=== PATIENT | male | born 1995 | race Caucasian/White ===

== ENCOUNTER 2017-06-10 04:30 | Emergency (ER) | payer SELFPAY ==
[~2017-06-10] VITALS: Ht 172.7 cm; Wt 108.9 kg
[~2017-06-10 04:30] MED LIST: FAMO40TA4 PO
--- NOTE | 2017-06-10 04:57 | PHYS DOC ---
Past Medical History Past Medical History: Asthma Additional Past Medical Histor: ulcers Past Surgical History: Other Additional Past Surgical Histo: ear tubes Alcohol Use: None Drug Use: None Adult General Chief Complaint Chief Complaint: ITCHING HPI HPI Patient is a 21 year old male that just got out of prison tonight. He states about 11pm he noticed a small itchy spot on right arm and left flank. it then quickly "exploded" to everywhere. he took 2 benadryl approx 45 min ago with no relief. no soa, no trouble swallowing or breathing. states his throat feels scratchy He has no hx of other allergies. he thinks it's new soap from [employer] that he used about 9pm. he also ate taco raya around this time as well Review of Systems Review of Systems Constitutional: Denies fever or chills [] Eyes: Denies change in visual acuity, redness, or eye pain [] HENT: Denies nasal congestion or sore throat [] Respiratory: Denies cough or shortness of breath [] Cardiovascular: No additional information not addressed in HPI [] GI: Denies abdominal pain, nausea, vomiting, bloody stools or diarrhea [] : Denies dysuria or hematuria [] Musculoskeletal: Denies back pain or joint pain [] Integument: Denies rash or skin lesions [] Neurologic: Denies headache, focal weakness or sensory changes [] Endocrine: Denies polyuria or polydipsia [] Current Medications Current Medications Current Medications Medications (Trade) Dose Ordered Sig/Ritesh Start Time Stop Time Status Last Admin Dose Admin Diphenhydramine HCl (Benadryl) 50 mg 1X ONCE 06/10/17 05:00 06/10/17 05:01 DC 06/10/17 04:53 50 MG Epinephrine HCl (Adrenalin) 0.2 mg 1X ONCE 06/10/17 05:00 06/10/17 05:01 DC 06/10/17 05:08 0.2 MG Famotidine (Pepcid) 20 mg 1X ONCE 06/10/17 05:00 06/10/17 05:01 DC 06/10/17 04:53 20 MG Methylprednisolone Sodium Succinate (SOLU-Medrol 125MG VIAL) 125 mg 1X ONCE 06/10/17 05:00 06/10/17 05:01 DC 06/10/17 04:53 125 MG Allergies Allergies Allergies Coded Allergies Type Severity Reaction Last Updated Verified No Known Drug Allergies 09/02/14 No Physical Exam Physical Exam Constitutional: Well developed, well nourished, no acute distress, non-toxic appearance. [] HENT: Normocephalic, atraumatic, bilateral external ears normal, oropharynx moist, no oral exudates, no swelling, no tongue swelling, nose normal. [] Eyes: PERRLA, EOMI, conjunctiva normal, no discharge. [] Neck: Normal range of motion, no tenderness, supple, no stridor. [] Cardiovascular:Heart rate regular rhythm, no murmur [] Lungs & Thorax: Bilateral breath sounds clear to auscultation [] Abdomen: Bowel sounds normal, soft, no tenderness, no masses, no pulsatile masses. [] Skin: diffuse raised hives. lips, tongue, throat all normal, no swelling Back: No tenderness, no CVA tenderness. [] Extremities: No tenderness, no cyanosis, no clubbing, ROM intact, no edema. [] Neurologic: Alert and oriented X 3, normal motor function, normal sensory function, no focal deficits noted. [] Psychologic: Affect normal, judgement normal, mood normal. [] Current Patient Data Vital Signs Vital Signs Date Time Temp Pulse Resp B/P (MAP) Pulse Ox O2 Delivery O2 Flow Rate FiO2 06/10/17 04:35 97.3 81 18 145/90 (108) 98 Room Air 97.3 EKG EKG [] Radiology/Procedures Radiology/Procedures [] Course & Med Decision Making Course & Med Decision Making Pertinent Labs and Imaging studies reviewed. (See chart for details) 0534: pt's hives are improving. post pharynx is still normal, nml lips and tongue. 0550: sx not worsening, still showing more improvement. still no airway sx will place on 5 days prednisone. he will return if airway swelling, benadryl every 6 hours, pepcid daily Dragon Disclaimer Dragon Disclaimer This electronic medical record was generated, in whole or in part, using a voice recognition dictation system. Departure Departure Impression: Primary Impression: Allergic reaction Disposition: HOME, SELF-CARE Condition: IMPROVED Referrals: NO PCP (PCP) Patient Instructions: Hives, [id number] Additional Instructions: Take benadryl 25 mg every 6 hours until hives resolve. start prednisone tomorrow morning. take pepcid 20mg daily and claritin 10mg daily. Return if lip swelling, tongue swelling, trouble swallowing or breathing. Take shower with other soap when you get home Scripts Prednisone (PREDNISONE) 20 Mg Tablet 3 TAB PO DAILY for 5 Days, #15 TAB Prov: NATHANAEL FRANCO MD 06/10/17 Critical Care Note Total Time (mins): 31-74 Comments pt had new onset allergic reaction. he states his throat is scratchy and feels swollen. epi given, benadryl, solumedrol, pepcid. post pharynx appeared normal on arrival and on subsequent rechecks. Problems: NATHANAEL FRANCO MD Jun 10, 2017 04:57
[2017-06-10] MEDS ORDERED: EPINEPHrine 1 MG/ML VIAL IM ONE (05:00)
[2017-06-10] MEDS ORDERED: diphenhydrAMINE 50 MG/ML VIAL IVP ONE (05:00)
[2017-06-10] MEDS ORDERED: FAMOTIDINE 20 MG TABLET. PO ONE (05:00)
[2017-06-10] MEDS ORDERED: methylPREDNISolone SOD SUCC PF 125 MG/2 ML VIAL. IV ONE (05:00)
[2017-06-10] MEDS ORDERED: PRED20TA PO (05:40)
[2017-06-10 06:14] VITALS: BP 147/73
== END 2017-06-10 06:15 | disposition home or self-care (01) ==
LOC: ER 04:30
DX: T78.40XA Allergy, unspecified, initial encounter (principal); J45.909 Unspecified asthma, uncomplicated
CPT/HCPCS: 96372; 96374; 96375; 99284; J0171; J1200; J2930

== ENCOUNTER 2018-04-28 15:52 | Emergency (ER) | payer SELFPAY ==
[2018-04-28] MEDS: DIPHTH,PERTUSS(ACELL),TET TOX 0.5 ML DISP.SYRIN. VAX IM (16:11)
== END 2018-04-28 16:50 | disposition home or self-care (01) ==
LOC: ER 15:52
DX: L03.115 Cellulitis of right lower limb (principal); J45.909 Unspecified asthma, uncomplicated
CPT/HCPCS: 73564; 90471; 90715; 99284-25

== ENCOUNTER 2018-12-27 21:50 | Emergency (ER) | payer SELFPAY ==
[~2018-12-27] VITALS: Ht 172.7 cm; Wt 101.6 kg
[~2018-12-27 21:50] MED LIST changes: +PRED20TA PO; +SULF1TAB24 PO
[2018-12-27 22:35] VITALS: BP 138/84
[2018-12-28] MEDS ORDERED: CEPH-264 PO (00:05)
[2018-12-28] MEDS ORDERED: BACI28.34 TP (00:05)
--- NOTE | 2018-12-28 00:05 | PHYS DOC ---
Past Medical History Past Medical History: Asthma, Other Additional Past Medical Histor: ulcers (AMBAR,PRABHA Yip [employer]) Past Surgical History: Other Additional Past Surgical Histo: [facility] tubes [facility] [employer]) Alcohol Use: None Drug Use: None ([facility],PRABHA Yip [employer]) Adult General Chief Complaint Chief Complaint: ABSCESS HPI HPI Patient is a 23 year old male who presents with with a left taking ingrown hair to his left base of buttock 4 days. ([facility],PRABHA Yip [employer]) Review of Systems Review of Systems Constitutional: Denies fever or chills [] Eyes: Denies change in visual acuity, redness, or eye pain [] HENT: Denies nasal congestion or sore throat [] Respiratory: Denies cough or shortness of breath [] Cardiovascular: No additional information not addressed in HPI [] GI: Denies abdominal pain, nausea, vomiting, bloody stools or diarrhea [] : Denies dysuria or hematuria [] Musculoskeletal: Denies back pain or joint pain [] Integument: Abscess to inner base of left buttock. Denies rash or skin lesions [ ] Neurologic: Denies headache, focal weakness or sensory changes [] All other systems were reviewed and found to be within normal limits, except as documented in this note. ([facility],PRABHA Yip [employer]) Allergies Allergies Allergies Coded Allergies Type Severity Reaction Last Updated Verified No Known Drug Allergies 09/02/14 No (ANOOP CLARK MD) Physical Exam Physical Exam Constitutional: Well developed, well nourished, no acute distress, non-toxic appearance. [] HENT: Normocephalic, atraumatic, bilateral external ears normal, oropharynx moist, no oral exudates, nose normal. [] Eyes: PERRLA, EOMI, conjunctiva normal, no discharge. [] Neck: Normal range of motion, no tenderness, supple, no stridor. [] Cardiovascular:Heart rate regular rhythm, no murmur [] Lungs & Thorax: Bilateral breath sounds clear to auscultation [] Abdomen: Bowel sounds normal, soft, no tenderness, no masses, no pulsatile masses. [] Skin: Warm, dry, no erythema, no rash. dime-sized round, draining, open abscess. [] Back: No tenderness, no CVA tenderness. [] Extremities: No tenderness, no cyanosis, no clubbing, ROM intact, no edema. [] Neurologic: Alert and oriented X 3, normal motor function, normal sensory function, no focal deficits noted. [] Psychologic: Affect normal, judgement normal, mood normal. [] (PRABHA VILLALTA APRN) Current Patient Data Vital Signs Vital Signs Date Time Temp Pulse Resp B/P (MAP) Pulse Ox O2 Delivery O2 Flow Rate FiO2 12/27/18 22:35 98.3 95 18 138/84 (102) 97 Room Air 98.3 (ANOOP CLARK MD) EKG EKG [] (PRABHA VILLALTA APRN) Radiology/Procedures Radiology/Procedures [] (PRABHA VILLALTA APRN) Course & Med Decision Making Course & Med Decision Making Patient is a 23 year old male who presents with with a left taking ingrown hair to his left base of buttock 4 days. Afebrile. Alert and oriented. Vital signs within normal limits. Area is the size of a dime and is round and open and draining purulent fluid. Patient is given a prescription for bacitracin and Keflex. Patient keep the area clean and covered. Patient follow-up in 48 hours for a wound check. (PRABHA VILLALTA APRN) Course & Med Decision Making Staff Physician Addendum: I was working in the ER during the course of this patient's visit. I was available for consultation as needed, but I was not directly involved in the care of this patient. (ANOOP CLARK MD) Dragon Disclaimer Dragon Disclaimer This electronic medical record was generated, in whole or in part, using a voice recognition dictation system. (PRABHA VILLALTA APRN) Departure Departure Impression: Primary Impression: Abscess Disposition: 01 HOME, SELF-CARE Condition: STABLE Referrals: NO PCP (PCP) Patient Instructions: Abscess Additional Instructions: Follow up in 48 hours here in the ED for a wound check. Take medications as prescribed. Keep area clean and dry. Scripts Bacitracin/Polymyxin B Sulfate (POLYSPORIN TOPICAL OINT) 28.3 Gm Oint...g. 1 ASHLI TP BID for WOUND CARE, #1 TUBE DIRECTED BY PHYSICIAN Prov: PRABHA VILLALTA APRN 12/28/18 Cephalexin (KEFLEX) 500 Mg Capsule 1 CAP PO TID for 7 Days, #21 CAP Prov: PRABHA VILLALTA APRN 12/28/18 PRABHA VILLALTA APRN Dec 28, 2018 00:05 ANOOP CLARK MD Dec 29, 2018 00:49
== END 2018-12-28 00:26 | disposition home or self-care (01) ==
LOC: ER 21:50
DX: L02.31 Cutaneous abscess of buttock (principal); L73.1 Pseudofolliculitis barbae; J45.909 Unspecified asthma, uncomplicated
CPT/HCPCS: 99283

== ENCOUNTER 2019-01-20 14:22 | Inpatient (IN) | payer SELFPAY ==
[2019-01-20] VITALS (8 sets, daily range): BP systolic 109–120; BP diastolic 56–74
[~2019-01-20] VITALS: Ht 175.3 cm; Wt 118.8 kg
[~2019-01-20 14:22] MED LIST changes: +BACI28.34 TP; +CEPH-264 PO
[2019-01-20] MEDS ORDERED: fentaNYL PF VIAL 100 MCG/2 ML VIAL IV ONE (15:00)
[2019-01-20] MEDS ORDERED: IV NORMAL SALINE 1000ML BAG 1,000 ML IV ONE ×2 (15:00→17:00)
[2019-01-20] MEDS ORDERED: ONDANSETRON PF 4 MG/2 ML VIAL. IV ONE (15:00)
[2019-01-20 15:09] LABS: BASO % 0 % (0-3); EOS # 0.1 x10^3/uL (0.0-0.7); EOS % 1 % (0-3); HEMATOCRIT 44.8 % (39.0-53.0); HEMOGLOBIN 15.5 g/dL (13.0-17.5); LYMPH # 1.5 x10^3/uL (1.0-4.8); LYMPH % 12 % (24-48); MEAN CORPUSCULAR HEMOGLOBIN 31 pg (25-35); MEAN CORPUSCULAR HGB CONC 35 g/dL (31-37); MEAN CORPUSCULAR VOLUME 89 fL (79-100); MONO # 0.9 x10^3/uL (0.0-1.1); MONO % 8 % (0-9); NEUT # 9.7 x10^3uL (1.8-7.7); NEUT % 79 % (31-73); PLATELET COUNT 210 x10^3/uL (140-400); RED BLOOD COUNT 5.02 x10^6/uL (4.30-5.70); RED CELL DISTRIBUTION WIDTH 12.7 % (11.5-14.5); WHITE BLOOD COUNT 12.3 x10^3/uL (4.0-11.0)
[2019-01-20 15:16] LABS: CALCIUM 8.9 mg/dL (8.5-10.1); GFR 91.8; POTASSIUM 3.7 mmol/L (3.5-5.1)
--- NOTE | 2019-01-20 15:21 | PHYS DOC ---
Past Medical History Past Medical History: No Pertinent History Additional Past Medical Histor: ulcers Past Surgical History: No Surgical History Additional Past Surgical Histo: ear tubes Additional Information: 1 pack/3 days Alcohol Use: None Drug Use: None Adult General Chief Complaint Chief Complaint: ABDOMINAL PAIN HPI HPI Patient is a 23 year old male with no significant medical history who presents to the ED today complaining of 10 out of 10 right lower quadrant abdominal pain with nausea and vomiting that began last night. Patient denies any fever. Denies any diarrhea. Denies anything specifically relieving the pain or exacerbating it. Review of Systems Review of Systems Constitutional: Denies fever or chills [] Eyes: Denies change in visual acuity, redness, or eye pain [] HENT: Denies nasal congestion or sore throat [] Respiratory: Denies cough or shortness of breath [] Cardiovascular: No additional information not addressed in HPI [] GI: Reports right lower quadrant abdominal pain, nausea and vomiting, denies, bloody stools or diarrhea [] : Denies dysuria or hematuria [] Musculoskeletal: Denies back pain or joint pain [] Integument: Denies rash or skin lesions [] Neurologic: Denies headache, focal weakness or sensory changes [] All other systems were reviewed and found to be within normal limits, except as documented in this note. Current Medications Current Medications Current Medications Medications (Trade) Dose Ordered Sig/Ritesh Start Time Stop Time Status Last Admin Dose Admin Fentanyl Citrate (Fentanyl 2ml Vial) 50 mcg 1X ONCE 01/20/19 15:00 01/20/19 15:10 DC 01/20/19 15:21 50 MCG Info (CONTRAST GIVEN -- Rx MONITORING) 1 each PRN DAILY PRN 01/20/19 15:30 01/22/19 15:29 Iohexol (Omnipaque 300 Mg/ml) 75 ml 1X ONCE 01/20/19 15:30 01/20/19 15:31 DC 01/20/19 15:43 75 ML Ondansetron HCl (Zofran) 4 mg 1X ONCE 01/20/19 15:00 01/20/19 15:10 DC 01/20/19 15:28 4 MG Sodium Chloride 1,000 ml @ 1,000 mls/hr 1X ONCE 01/20/19 15:00 01/20/19 15:59 DC 01/20/19 15:16 1,000 MLS/HR Allergies Allergies Allergies Coded Allergies Type Severity Reaction Last Updated Verified No Known Drug Allergies 09/02/14 No Physical Exam Physical Exam Constitutional: Well developed, well nourished, no acute distress, non-toxic appearance. [] HENT: Normocephalic, atraumatic, bilateral external ears normal, oropharynx moist, no oral exudates, nose normal. [] Eyes: PERRLA, EOMI, conjunctiva normal, no discharge. [] Neck: Normal range of motion, no tenderness, supple, no stridor. [] Cardiovascular:Heart rate regular rhythm, no murmur [] Lungs & Thorax: Bilateral breath sounds clear to auscultation [] Abdomen: Obese abdomen. Bowel sounds normal, soft, tenderness diffusely on palpation of the right side of the mid and lower abdomen, positive psoas sign, positive obturator sign, rebound tenderness, patient is guarding the right side of the abdomen, no right upper quadrant tenderness, negative Tam sign, no masses, no pulsatile masses. [] Skin: Warm, dry, no erythema, no rash. [] Back: No tenderness, no CVA tenderness. [] Extremities: No tenderness, no cyanosis, no clubbing, ROM intact, no edema. [] Neurologic: Alert and oriented X 3, normal motor function, normal sensory function, no focal deficits noted. [] Psychologic: Affect normal, judgement normal, mood normal. [] Current Patient Data Vital Signs Vital Signs Date Time Temp Pulse Resp B/P (MAP) Pulse Ox O2 Delivery O2 Flow Rate FiO2 01/20/19 15:21 22 99 01/20/19 14:49 98.5 97 122/68 (86) Room Air 98.5 Lab Values Laboratory Tests Test 01/20/19 14:55 White Blood Count 12.3 x10^3/uL (4.0-11.0) H Red Blood Count 5.02 x10^6/uL (4.30-5.70) Hemoglobin 15.5 g/dL (13.0-17.5) Hematocrit 44.8 % (39.0-53.0) Mean Corpuscular Volume 89 fL (79-100) Mean Corpuscular Hemoglobin 31 pg (25-35) Mean Corpuscular Hemoglobin Concent 35 g/dL (31-37) Red Cell Distribution Width 12.7 % (11.5-14.5) Platelet Count 210 x10^3/uL (140-400) Neutrophils (%) (Auto) 79 % (31-73) H Lymphocytes (%) (Auto) 12 % (24-48) L Monocytes (%) (Auto) 8 % (0-9) Eosinophils (%) (Auto) 1 % (0-3) Basophils (%) (Auto) 0 % (0-3) Neutrophils # (Auto) 9.7 x10^3uL (1.8-7.7) H Lymphocytes # (Auto) 1.5 x10^3/uL (1.0-4.8) Monocytes # (Auto) 0.9 x10^3/uL (0.0-1.1) Eosinophils # (Auto) 0.1 x10^3/uL (0.0-0.7) Basophils # (Auto) 0.0 x10^3/uL (0.0-0.2) Sodium Level 140 mmol/L (136-145) Potassium Level 3.7 mmol/L (3.5-5.1) Chloride Level 101 mmol/L (98-107) Carbon Dioxide Level 28 mmol/L (21-32) Anion Gap 11 (6-14) Blood Urea Nitrogen 15 mg/dL (8-26) Creatinine 1.0 mg/dL (0.7-1.3) Estimated GFR (Cockcroft-Gault) 91.8 BUN/Creatinine Ratio 15 (6-20) Glucose Level 100 mg/dL (70-99) H Calcium Level 8.9 mg/dL (8.5-10.1) Total Bilirubin 0.8 mg/dL (0.2-1.0) Aspartate Amino Transferase (AST) 15 U/L (15-37) Alanine Aminotransferase (ALT) 24 U/L (16-63) Alkaline Phosphatase 99 U/L (46-116) Total Protein 8.0 g/dL (6.4-8.2) Albumin 4.3 g/dL (3.4-5.0) Albumin/Globulin Ratio 1.2 (1.0-1.7) Lipase 121 U/L (73-393) Ethyl Alcohol Level < 10 mg/dL (0-10) Laboratory Tests 01/20/19 14:55 Laboratory Tests 01/20/19 14:55 EKG EKG [] Radiology/Procedures Radiology/Procedures [] Course & Med Decision Making Course & Med Decision Making Pertinent Labs and Imaging studies reviewed. (See chart for details) This is a 23-year-old male patient presenting to the ED today with complaints of right lower quadrant abdominal pain with nausea and vomiting that began yesterday. CBC with a WBC of 12.3, CMP with no acute findings. CT of the abdomen and pelvic was noted for acute appendicitis. Patient is afebrile Spoke with Dr. Oscar who accepted patient for admission. 16:54 Dr. Oscar in the ED, taking patient to surgery now Dragon Disclaimer Dragon Disclaimer This electronic medical record was generated, in whole or in part, using a voice recognition dictation system. Departure Departure Impression: Primary Impression: Acute appendicitis Disposition: ADMITTED INPATIENT Condition: STABLE Referrals: NO PCP (PCP) Problem Qualifiers Primary Impression: Acute appendicitis Acute appendicitis type: unspecified acute appendicitis type Qualified Codes : K35.80 - Unspecified acute appendicitis MELITON ROTHMAN APRN Jan 20, 2019 15:20
[2019-01-20 15:22] LABS: ALBUMIN 4.3 g/dL (3.4-5.0); ALBUMIN/GLOBULIN RATIO 1.2 (1.0-1.7); TOTAL BILIRUBIN 0.8 mg/dL (0.2-1.0)
[2019-01-20] MEDS ORDERED: IOHEXOL 300 MG/ML 100ML VIAL. IV ONE (15:30)
[2019-01-20] MEDS ORDERED: CONTRAST GIVEN. MC PRN (15:30)
--- NOTE | 2019-01-20 16:19 | RAD ---
EXAM: CT ABDOMEN/PELVIS WITH CONTRAST. HISTORY: Right lower quadrant pain. TECHNIQUE: Computed tomography of the abdomen and pelvis was performed after the intravenous administration of 75 mL Omnipaque 300. COMPARISON: None. FINDINGS: Lung windows through the visualized portions of the bases reveal mild atelectasis. Bone windows reveal no suspicious lesions. The spleen is mildly to moderately enlarged at 16 cm. The liver, gallbladder, pancreas, adrenal glands and kidneys are unremarkable. There are no pathologically enlarged lymph nodes. The appendix is thickened to 1.3 cm with surrounding inflammatory change, consistent with acute appendicitis. There is no drainable collection. A small umbilical hernia contains only fat. There is no small bowel obstruction. IMPRESSION: 1. Acute appendicitis. 2. Small umbilical hernia containing only fat. 3. Mild to moderate splenomegaly. *One or more of the following individualized dose reduction techniques were utilized for this examination: 1. Automated exposure control. 2. Adjustment of the mA and/or kV according to patient size. 3. Use of iterative reconstruction technique. Electronically signed by: Carlin Freeman MD (01/20/2019 4:16 PM) [id number]
[2019-01-20] MEDS ORDERED: BUPIVAC MPF-EPI 0.5%-1:200000 30 ML VIAL. ONE (16:38)
[2019-01-20] MEDS ORDERED: BACITRACIN 50,000 UNIT VIAL. IRR ONE (16:38)
[2019-01-20 16:50] LABS: BILIRUBIN,URINE NEGATIVE (NEG); CLARITY,URINE CLEAR; COLOR,URINE YELLOW; NITRITE,URINE NEGATIVE (NEG); PH,URINE 6.5; PROTEIN,URINE NEGATIVE (NEG-TRACE)
[2019-01-20 17:00] LABS: BACTERIA,URINE FEW /HPF (0-FEW); SQUAMOUS EPITHELIAL CELL,UR OCC /LPF
[2019-01-20] MEDS ORDERED: PIPERACILLIN/TAZOBACTAM 3.375 GM in IV NORMAL SALINE 50ML 50 ML IV ONE (17:00)
[2019-01-20] MEDS ORDERED: ONDANSETRON PF 4 MG/2 ML VIAL. IV PRN ×3 (17:00→19:00)
[2019-01-20] MEDS ORDERED: MORPHINE SULFATE 4 MG/ML VIAL. IV PRN (17:00)
[2019-01-20 17:02] LABS: BARBITURATES NEG (NEG); BENZODIAZEPINES NEG (NEG); CANNABINOIDS NEG (NEG); COCAINE NEG (NEG); METHADONE NEG (NEG); OPIATES NEG (NEG); PHENCYCLIDINE NEG (NEG)
[2019-01-20 17:03] LABS: AMPHETAMINE/METHAMPHETAMINE NEG (NEG)
--- NOTE | 2019-01-20 17:11 | PDOC1 ---
History and Physical Date of Admission Date of Admission DATE: 01/20/19 TIME: 17:07 Identification/Chief Complaint Chief Complaint RLQ pain Source Source: Chart review, Patient History of Present Illness History of Present Illness Vishnu is a 23 yo male with a two day hx of worsening RLQ pain. He came to the ED and CT is consistent with acute appendicitis Past Medical History Cardiovascular: No pertinent hx Pulmonary: No pertinent hx Renal/: No pertinent hx Past Surgical History Past Surgical History: Other (tympanoplasty) Family History Family History: No Significant Social History Smoke: <1 pack per day Current Problem List Problem List Problems Medical Problems: (1) Acute appendicitis Status: Acute Current Medications Current Medications Current Medications Ondansetron HCl (Zofran) 4 mg 1X ONCE IV Last administered on 01/20/19at 15:28 ; Start 01/20/19 at 15:00; Stop 01/20/19 at 15:10; Status DC Fentanyl Citrate (Fentanyl 2ml Vial) 50 mcg 1X ONCE IV Last administered on at 15:21; Start 01/20/19 at 15:00; Stop 01/20/19 at 15:10; Status DC Sodium Chloride 1,000 ml @ 1,000 mls/hr 1X ONCE IV Last administered on at 15:16; Start 01/20/19 at 15:00; Stop 01/20/19 at 15:59; Status DC Iohexol (Omnipaque 300 Mg/ml) 75 ml 1X ONCE IV Last administered on 01/20/19at 15:43; Start 01/20/19 at 15:30; Stop 01/20/19 at 15:31; Status DC Info (CONTRAST GIVEN -- Rx MONITORING) 1 each PRN DAILY PRN MC SEE COMMENTS; Start 01/20/19 at 15:30; Stop 01/22/19 at 15:29 Ondansetron HCl (Zofran) 4 mg PRN Q8HRS PRN IV NAUSEA/VOMITING; Start 01/20/19 at 17:00; Stop 01/21/19 at 16:59 Morphine Sulfate (Morphine Sulfate) 4 mg PRN Q2HR PRN IV PAIN; Start 01/20/19 at 17:00; Stop 01/21/19 at 16:59 Piperacillin Sod/ Tazobactam Sod 3.375 gm/Sodium Chloride 50 ml @ 100 mls/hr 1X ONCE IV ; Start 01/20/19 at 17:00; Stop 01/20/19 at 17:29 Sodium Chloride 1,000 ml @ 125 mls/hr 1X ONCE IV ; Start 01/20/19 at 17:00; Stop 01/21/19 at 00:59 Active Scripts Active Polysporin Topical Oint (Bacitracin/Polymyxin B Sulfate) 28.3 Gm Oint...g. 1 Isabel TP BID DIRECTED BY PHYSICIAN Keflex (Cephalexin) 500 Mg Capsule 1 Cap PO TID 7 Days Bactrim Ds Tablet (Sulfamethoxazole/Trimethoprim) 1 Each Tablet 1 Tab PO BID Prednisone 20 Mg Tablet 3 Tab PO DAILY 5 Days Famotidine 40 Mg Tablet 40 Mg PO HS Allergies Allergies: Coded Allergies: No Known Drug Allergies (Unverified , 09/02/14) ROS Gastrointestinal: Yes Abdominal Pain, Yes Other (anorexia) Physical Exam General: Alert, Oriented X3, No acute distress HEENT: Atraumatic Lungs: Normal air movement Heart: RRR Abdomen: Soft, Other (TTP in the RLQ) Skin: Other (warm, dry) Neuro: Normal speech Vitals Vitals Vital Signs Date Time Temp Pulse Resp B/P (MAP) Pulse Ox O2 Delivery O2 Flow Rate FiO2 01/20/19 15:21 22 99 01/20/19 14:49 98.5 97 122/68 (86) Room Air 98.5 Labs Labs Laboratory Tests Test 01/20/19 14:55 01/20/19 16:38 White Blood Count 12.3 x10^3/uL (4.0-11.0) Red Blood Count 5.02 x10^6/uL (4.30-5.70) Hemoglobin 15.5 g/dL (13.0-17.5) Hematocrit 44.8 % (39.0-53.0) Mean Corpuscular Volume 89 fL (79-100) Mean Corpuscular Hemoglobin 31 pg (25-35) Mean Corpuscular Hemoglobin Concent 35 g/dL (31-37) Red Cell Distribution Width 12.7 % (11.5-14.5) Platelet Count 210 x10^3/uL (140-400) Neutrophils (%) (Auto) 79 % (31-73) Lymphocytes (%) (Auto) 12 % (24-48) Monocytes (%) (Auto) 8 % (0-9) Eosinophils (%) (Auto) 1 % (0-3) Basophils (%) (Auto) 0 % (0-3) Neutrophils # (Auto) 9.7 x10^3uL (1.8-7.7) Lymphocytes # (Auto) 1.5 x10^3/uL (1.0-4.8) Monocytes # (Auto) 0.9 x10^3/uL (0.0-1.1) Eosinophils # (Auto) 0.1 x10^3/uL (0.0-0.7) Basophils # (Auto) 0.0 x10^3/uL (0.0-0.2) Sodium Level 140 mmol/L (136-145) Potassium Level 3.7 mmol/L (3.5-5.1) Chloride Level 101 mmol/L (98-107) Carbon Dioxide Level 28 mmol/L (21-32) Anion Gap 11 (6-14) Blood Urea Nitrogen 15 mg/dL (8-26) Creatinine 1.0 mg/dL (0.7-1.3) Estimated GFR (Cockcroft-Gault) 91.8 BUN/Creatinine Ratio 15 (6-20) Glucose Level 100 mg/dL (70-99) Calcium Level 8.9 mg/dL (8.5-10.1) Total Bilirubin 0.8 mg/dL (0.2-1.0) Aspartate Amino Transf (AST/SGOT) 15 U/L (15-37) Alanine Aminotransferase (ALT/SGPT) 24 U/L (16-63) Alkaline Phosphatase 99 U/L (46-116) Total Protein 8.0 g/dL (6.4-8.2) Albumin 4.3 g/dL (3.4-5.0) Albumin/Globulin Ratio 1.2 (1.0-1.7) Lipase 121 U/L (73-393) Ethyl Alcohol Level < 10 mg/dL (0-10) Urine Collection Type Unknown Urine Color Yellow Urine Clarity Clear Urine pH 6.5 Urine Specific [place] >=1.030 Urine Protein Negative mg/dL (NEG-TRACE) Urine Glucose (UA) Negative mg/dL (NEG) Urine Ketones (Stick) Trace mg/dL (NEG) Urine Blood Negative (NEG) Urine Nitrite Negative (NEG) Urine Bilirubin Negative (NEG) Urine Urobilinogen Dipstick 1.0 mg/dL (0.2 mg/dL) Urine Leukocyte Esterase Negative (NEG) Urine RBC 1-2 /HPF (0-2) Urine WBC 1-4 /HPF (0-4) Urine Squamous Epithelial Cells Occ /LPF Urine Bacteria Few /HPF (0-FEW) Urine Opiates Screen Neg (NEG) Urine Methadone Screen Neg (NEG) Urine Barbiturates Neg (NEG) Urine Phencyclidine Screen Neg (NEG) Urine Amphetamine/Methamphetamine Neg (NEG) Urine Benzodiazepines Screen Neg (NEG) Urine Cocaine Screen Neg (NEG) Urine Cannabinoids Screen Neg (NEG) Urine Ethyl Alcohol Neg (NEG) Laboratory Tests Test 01/20/19 14:55 01/20/19 16:38 White Blood Count 12.3 x10^3/uL (4.0-11.0) Red Blood Count 5.02 x10^6/uL (4.30-5.70) Hemoglobin 15.5 g/dL (13.0-17.5) Hematocrit 44.8 % (39.0-53.0) Mean Corpuscular Volume 89 fL (79-100) Mean Corpuscular Hemoglobin 31 pg (25-35) Mean Corpuscular Hemoglobin Concent 35 g/dL (31-37) Red Cell Distribution Width 12.7 % (11.5-14.5) Platelet Count 210 x10^3/uL (140-400) Neutrophils (%) (Auto) 79 % (31-73) Lymphocytes (%) (Auto) 12 % (24-48) Monocytes (%) (Auto) 8 % (0-9) Eosinophils (%) (Auto) 1 % (0-3) Basophils (%) (Auto) 0 % (0-3) Neutrophils # (Auto) 9.7 x10^3uL (1.8-7.7) Lymphocytes # (Auto) 1.5 x10^3/uL (1.0-4.8) Monocytes # (Auto) 0.9 x10^3/uL (0.0-1.1) Eosinophils # (Auto) 0.1 x10^3/uL (0.0-0.7) Basophils # (Auto) 0.0 x10^3/uL (0.0-0.2) Sodium Level 140 mmol/L (136-145) Potassium Level 3.7 mmol/L (3.5-5.1) Chloride Level 101 mmol/L (98-107) Carbon Dioxide Level 28 mmol/L (21-32) Anion Gap 11 (6-14) Blood Urea Nitrogen 15 mg/dL (8-26) Creatinine 1.0 mg/dL (0.7-1.3) Estimated GFR (Cockcroft-Gault) 91.8 BUN/Creatinine Ratio 15 (6-20) Glucose Level 100 mg/dL (70-99) Calcium Level 8.9 mg/dL (8.5-10.1) Total Bilirubin 0.8 mg/dL (0.2-1.0) Aspartate Amino Transf (AST/SGOT) 15 U/L (15-37) Alanine Aminotransferase (ALT/SGPT) 24 U/L (16-63) Alkaline Phosphatase 99 U/L (46-116) Total Protein 8.0 g/dL (6.4-8.2) Albumin 4.3 g/dL (3.4-5.0) Albumin/Globulin Ratio 1.2 (1.0-1.7) Lipase 121 U/L (73-393) Ethyl Alcohol Level < 10 mg/dL (0-10) Urine Collection Type Unknown Urine Color Yellow Urine Clarity Clear Urine pH 6.5 Urine Specific [place] >=1.030 Urine Protein Negative mg/dL (NEG-TRACE) Urine Glucose (UA) Negative mg/dL (NEG) Urine Ketones (Stick) Trace mg/dL (NEG) Urine Blood Negative (NEG) Urine Nitrite Negative (NEG) Urine Bilirubin Negative (NEG) Urine Urobilinogen Dipstick 1.0 mg/dL (0.2 mg/dL) Urine Leukocyte Esterase Negative (NEG) Urine RBC 1-2 /HPF (0-2) Urine WBC 1-4 /HPF (0-4) Urine Squamous Epithelial Cells Occ /LPF Urine Bacteria Few /HPF (0-FEW) Urine Opiates Screen Neg (NEG) Urine Methadone Screen Neg (NEG) Urine Barbiturates Neg (NEG) Urine Phencyclidine Screen Neg (NEG) Urine Amphetamine/Methamphetamine Neg (NEG) Urine Benzodiazepines Screen Neg (NEG) Urine Cocaine Screen Neg (NEG) Urine Cannabinoids Screen Neg (NEG) Urine Ethyl Alcohol Neg (NEG) Images Images CT done on admission is reviewed VTE Prophylaxis Ordered VTE Prophylaxis Devices: Yes VTE Pharmacological Prophylaxi: No Assessment/Plan Assessment/Plan acute appendicitis explained risks of laparoscopic appendectomy, including but not limited to bleeding, infection, injury to bowel,bladder with need for further surgery, also possible open procedure he will proceed ALMITA PAULINO MD Jan 20, 2019 17:11
[2019-01-20] MEDS ORDERED: IV RINGERS,LACTATED 1000ML 1,000 ML IV SCH (17:46)
[2019-01-20] MEDS ORDERED: SUCCINYLCHOLINE 200 MG/10 ML VIAL. ONE (17:50)
[2019-01-20] MEDS ORDERED: MIDAZOLAM HCL/PF 2 MG/2 ML VIAL. ONE (17:51)
[2019-01-20] MEDS ORDERED: ROCURONIUM 50 MG/5 ML VIAL. ONE (17:51)
[2019-01-20] MEDS ORDERED: fentaNYL PF VIAL 100 MCG/2 ML VIAL ONE ×2 (17:54→18:27)
[2019-01-20] MEDS ORDERED: PROCHLORPERAZINE 10 MG/2 ML VIAL. IV PRN (18:00)
[2019-01-20] MEDS ORDERED: fentaNYL PF VIAL 100 MCG/2 ML VIAL IV PRN ×2 (18:00)
[2019-01-20] MEDS ORDERED: MORPHINE SULFATE 2 MG/ML VIAL. IV PRN (18:00)
[2019-01-20] MEDS ORDERED: LIDOCAINE 1% PF 2 ML VIAL. ID PRN (18:00)
[2019-01-20] MEDS ORDERED: HYDROmorphone 2 MG/ML VIAL IV PRN ×2 (18:00→19:00)
[2019-01-20] MEDS ORDERED: DEXAMETHASONE SOD PHOS 20 MG/5 ML VIAL. ONE (18:39)
[2019-01-20] MEDS ORDERED: LIDOCAINE 2% PF 5 ML VIAL. ONE (18:39)
[2019-01-20] MEDS ORDERED: PROPOFOL 20 ML IV ONE (18:39)
[2019-01-20] MEDS ORDERED: ONDANSETRON PF 4 MG/2 ML VIAL. ONE (18:40)
[2019-01-20] MEDS ORDERED: FAMOTIDINE 20 MG/2 ML VIAL ONE (18:40)
[2019-01-20] MEDS ORDERED: GLYCOPYRROLATE 1 MG/5 ML VIAL. ONE (18:42)
[2019-01-20] MEDS ORDERED: NEOSTIGMINE 10 MG/10 ML VIAL. ONE (18:42)
--- NOTE | 2019-01-20 18:59 | PDOC ---
BRIEF OPERATIVE NOTE Date: Jan 20, 2019 Pre-Op Diagnosis acute appendicitis Post-Op Diagnosis same Procedure Performed l/s appendectomy Surgeon Dayne Anesthesia Type: General Blood Loss 10cc IV Fluid 1000cc Specimens Obtained appendix Findings acute appendicitis without evidence of rupture Complications none Operative Note Wk # ALMITA PAULINO MD Jan 20, 2019 18:59
[2019-01-20] MEDS ORDERED: oxyCODONE/APAP 5/325 1 TAB TABLET PO PRN (19:00)
[2019-01-20] MEDS ORDERED: diphenhydrAMINE HCL 25 MG CAPSULE PO PRN (19:00)
[2019-01-20] MEDS ORDERED: 0.9 % SODIUM CHLORIDE 10 ML DISP.SYRIN. IV PRN (19:00)
[2019-01-20] MEDS ORDERED: DEXTROSE 50% 25 GM / 50ML DISP.SYRIN. IV PRN (19:00)
[2019-01-20] MEDS ORDERED: KETOROLAC 30 MG/ML VIAL. ONE (19:05)
--- NOTE | 2019-01-20 21:00 | NUR ---
pt arrived to floor at 2004 in stable condition from PACU. pt is alert and oriented with mom at bedside. pt has call light within reach. pt is rating his pain 5/10 but states that is a comfortable rating for him. pt dressing is CDI with ice pack and pillow to help with pain. pt is on 2LNC. received report from KJ Schilling in ER and KJ Kim in PACU.
--- NOTE | 2019-01-20 21:10 | OP ---
DATE OF SURGERY: 01/20/2019 PREOPERATIVE DIAGNOSIS: Acute appendicitis. POSTOPERATIVE DIAGNOSIS: Acute appendicitis. PROCEDURE: Laparoscopic appendectomy. SURGEON: Davide Paulino MD. . ANESTHESIA: General endotracheal. ESTIMATED BLOOD LOSS: 10 mL. INTRAVENOUS FLUID: 1 liter. INDICATIONS: The patient is a 23-year-old with right lower quadrant pain for [address] consistent with appendicitis. DESCRIPTION OF PROCEDURE: The patient was brought to the operating suite, given a general endotracheal anesthetic. Delvalle catheter was placed to dependent drainage and the abdomen prepped and draped in usual sterile fashion. A supraumbilical incision was infiltrated with local anesthetic, incised and a 5-mm Visiport used to gain access into the abdominal cavity. Pneumoperitoneum established. Camera inserted and under direct vision, the suprapubic and left lower quadrant ports were placed. Supraumbilical port converted to 12 mm for instrumentation. Table rolled to the left and placed in some Trendelenburg. The appendix was gently freed from surrounding structures to expose its base. A rent was created between the base of the appendix and the mesoappendix and an Endo-TONY stapler was passed with the tissue load to amputate the base of the appendix. Vascular load divided the mesoappendix. Appendix placed in an EndoCatch bag. Intra-abdominal pressure decreased to 6 cm of water. No bleeding from the appendiceal stump or the mesoappendix was seen. Table returned to level. Appendix delivered through the supraumbilical incision. That incision was closed with interrupted 0 Vicryl suture. Again, at 6 cm of water, no bleeding from the wound closure or from the left lower quadrant port site after its removal. Abdomen decompressed, camera removed, no bleeding seen. Skin incisions closed with paul. Sterile dressings applied. Delvalle catheter removed. The patient was awakened from his anesthetic and taken to the recovery room in satisfactory condition. DAVIDE PAULINO MD DR: DASH/sam JOB#: [id number] / [id number]
[2019-01-20] MEDS: POTASSIUM CL 20MEQ-0.45% NACL 1,000 ML IV SCH (22:07)
[2019-01-20] MEDS: oxyCODONE/APAP 5/325 1 TAB TABLET PO PRN (22:13)
[2019-01-21 00:01] VITALS: BP 125/64
[2019-01-21 03:00] VITALS: BP 107/59
[2019-01-21] MEDS: oxyCODONE/APAP 5/325 1 TAB TABLET PO PRN (04:12)
[2019-01-21 05:21] LABS: BASO % 0 % (0-3); EOS % 0 % (0-3); HEMATOCRIT 40.5 % (39.0-53.0); HEMOGLOBIN 14.1 g/dL (13.0-17.5); LYMPH # 0.7 x10^3/uL (1.0-4.8); LYMPH % 9 % (24-48); MEAN CORPUSCULAR HEMOGLOBIN 31 pg (25-35); MEAN CORPUSCULAR HGB CONC 35 g/dL (31-37); MEAN CORPUSCULAR VOLUME 90 fL (79-100); MONO # 0.2 x10^3/uL (0.0-1.1); MONO % 2 % (0-9); NEUT # 6.9 x10^3uL (1.8-7.7); NEUT % 89 % (31-73); PLATELET COUNT 206 x10^3/uL (140-400); RED BLOOD COUNT 4.49 x10^6/uL (4.30-5.70); RED CELL DISTRIBUTION WIDTH 12.8 % (11.5-14.5); WHITE BLOOD COUNT 7.7 x10^3/uL (4.0-11.0)
[2019-01-21 05:46] LABS: CALCIUM 8.4 mg/dL (8.5-10.1); GFR 91.8; POTASSIUM 4.2 mmol/L (3.5-5.1)
[2019-01-21] MEDS: POTASSIUM CL 20MEQ-0.45% NACL 1,000 ML IV SCH ×2 (06:07→08:08)
[2019-01-21 07:00] VITALS: BP 104/59
[2019-01-21] MEDS ORDERED: OXYC1TAB15 PO (08:29)
--- NOTE | 2019-01-21 08:30 | DISCH ---
DISCHARGE INSTRUCTIONS Condition on Discharge Condition on Discharge: Stable Activity After Discharge Activity Instructions for Disc: Activity as tolerated Other activity instructions: ok to shower Lifting Instructions after Dis: No heavy lifting (20 lbs x 2 weeks) Driving Instructions after Dis: Do not drive (while taking pain medications ) Diet after Discharge Diet after Discharge: Regular Wound Incision Care Wound/Incision Care: May get incision wet, No wound care needed Contacting the DRPerla after DC Call your doctor for: Concerns you may have Follow-Up Follow up with: Dr Oscar 1 week, call to schedule [phone] JULISSA MENDIOLA APRN Jan 21, 2019 08:30
--- NOTE | 2019-01-21 08:32 | PDOC ---
JULISSA MENDIOLA LEGAL COORDINATOR 01/21/19 0832: SURGICAL PROGRESS NOTE Subjective tolerating diet ambulating urinating minimal pain Vital Signs Vital Signs Date Time Temp Pulse Resp B/P (MAP) Pulse Ox O2 Delivery O2 Flow Rate FiO2 01/21/19 07:00 97.4 64 18 104/59 (74) 94 Room Air 97.4 01/20/19 22:13 2.0 I&O Intake and Output 01/21/19 06:59 Intake Total 2670 ml Output Total 85 ml Balance 2585 ml Intake Oral 420 ml IV Total 2250 ml Output Urine Total 75 ml Estimated Blood Loss 10 ml # Voids 1 # Bowel Movements 1 General: Alert, Oriented X3, Cooperative, No acute distress Abdomen: Soft, Other (ND, lap dressings dry) Labs Laboratory Tests Test 01/20/19 14:55 01/20/19 16:38 01/21/19 04:20 White Blood Count 12.3 x10^3/uL (4.0-11.0) 7.7 x10^3/uL (4.0-11.0) Red Blood Count 5.02 x10^6/uL (4.30-5.70) 4.49 x10^6/uL (4.30-5.70) Hemoglobin 15.5 g/dL (13.0-17.5) 14.1 g/dL (13.0-17.5) Hematocrit 44.8 % (39.0-53.0) 40.5 % (39.0-53.0) Mean Corpuscular Volume 89 fL (79-100) 90 fL (79-100) Mean Corpuscular Hemoglobin 31 pg (25-35) 31 pg (25-35) Mean Corpuscular Hemoglobin Concent 35 g/dL (31-37) 35 g/dL (31-37) Red Cell Distribution Width 12.7 % (11.5-14.5) 12.8 % (11.5-14.5) Platelet Count 210 x10^3/uL (140-400) 206 x10^3/uL (140-400) Neutrophils (%) (Auto) 79 % (31-73) 89 % (31-73) Lymphocytes (%) (Auto) 12 % (24-48) 9 % (24-48) Monocytes (%) (Auto) 8 % (0-9) 2 % (0-9) Eosinophils (%) (Auto) 1 % (0-3) 0 % (0-3) Basophils (%) (Auto) 0 % (0-3) 0 % (0-3) Neutrophils # (Auto) 9.7 x10^3uL (1.8-7.7) 6.9 x10^3uL (1.8-7.7) Lymphocytes # (Auto) 1.5 x10^3/uL (1.0-4.8) 0.7 x10^3/uL (1.0-4.8) Monocytes # (Auto) 0.9 x10^3/uL (0.0-1.1) 0.2 x10^3/uL (0.0-1.1) Eosinophils # (Auto) 0.1 x10^3/uL (0.0-0.7) 0.0 x10^3/uL (0.0-0.7) Basophils # (Auto) 0.0 x10^3/uL (0.0-0.2) 0.0 x10^3/uL (0.0-0.2) Sodium Level 140 mmol/L (136-145) 137 mmol/L (136-145) Potassium Level 3.7 mmol/L (3.5-5.1) 4.2 mmol/L (3.5-5.1) Chloride Level 101 mmol/L (98-107) 102 mmol/L (98-107) Carbon Dioxide Level 28 mmol/L (21-32) 26 mmol/L (21-32) Anion Gap 11 (6-14) 9 (6-14) Blood Urea Nitrogen 15 mg/dL (8-26) 13 mg/dL (8-26) Creatinine 1.0 mg/dL (0.7-1.3) 1.0 mg/dL (0.7-1.3) Estimated GFR (Cockcroft-Gault) 91.8 91.8 BUN/Creatinine Ratio 15 (6-20) Glucose Level 100 mg/dL (70-99) 202 mg/dL (70-99) Calcium Level 8.9 mg/dL (8.5-10.1) 8.4 mg/dL (8.5-10.1) Total Bilirubin 0.8 mg/dL (0.2-1.0) Aspartate Amino Transf (AST/SGOT) 15 U/L (15-37) Alanine Aminotransferase (ALT/SGPT) 24 U/L (16-63) Alkaline Phosphatase 99 U/L (46-116) Total Protein 8.0 g/dL (6.4-8.2) Albumin 4.3 g/dL (3.4-5.0) Albumin/Globulin Ratio 1.2 (1.0-1.7) Lipase 121 U/L (73-393) Ethyl Alcohol Level < 10 mg/dL (0-10) Urine Collection Type Unknown Urine Color Yellow Urine Clarity Clear Urine pH 6.5 Urine Specific [place] >=1.030 Urine Protein Negative mg/dL (NEG-TRACE) Urine Glucose (UA) Negative mg/dL (NEG) Urine Ketones (Stick) Trace mg/dL (NEG) Urine Blood Negative (NEG) Urine Nitrite Negative (NEG) Urine Bilirubin Negative (NEG) Urine Urobilinogen Dipstick 1.0 mg/dL (0.2 mg/dL) Urine Leukocyte Esterase Negative (NEG) Urine RBC 1-2 /HPF (0-2) Urine WBC 1-4 /HPF (0-4) Urine Squamous Epithelial Cells Occ /LPF Urine Bacteria Few /HPF (0-FEW) Urine Opiates Screen Neg (NEG) Urine Methadone Screen Neg (NEG) Urine Barbiturates Neg (NEG) Urine Phencyclidine Screen Neg (NEG) Urine Amphetamine/Methamphetamine Neg (NEG) Urine Benzodiazepines Screen Neg (NEG) Urine Cocaine Screen Neg (NEG) Urine Cannabinoids Screen Neg (NEG) Urine Ethyl Alcohol Neg (NEG) Laboratory Tests Test 01/20/19 14:55 01/20/19 16:38 01/21/19 04:20 White Blood Count 12.3 x10^3/uL (4.0-11.0) 7.7 x10^3/uL (4.0-11.0) Red Blood Count 5.02 x10^6/uL (4.30-5.70) 4.49 x10^6/uL (4.30-5.70) Hemoglobin 15.5 g/dL (13.0-17.5) 14.1 g/dL (13.0-17.5) Hematocrit 44.8 % (39.0-53.0) 40.5 % (39.0-53.0) Mean Corpuscular Volume 89 fL (79-100) 90 fL (79-100) Mean Corpuscular Hemoglobin 31 pg (25-35) 31 pg (25-35) Mean Corpuscular Hemoglobin Concent 35 g/dL (31-37) 35 g/dL (31-37) Red Cell Distribution Width 12.7 % (11.5-14.5) 12.8 % (11.5-14.5) Platelet Count 210 x10^3/uL (140-400) 206 x10^3/uL (140-400) Neutrophils (%) (Auto) 79 % (31-73) 89 % (31-73) Lymphocytes (%) (Auto) 12 % (24-48) 9 % (24-48) Monocytes (%) (Auto) 8 % (0-9) 2 % (0-9) Eosinophils (%) (Auto) 1 % (0-3) 0 % (0-3) Basophils (%) (Auto) 0 % (0-3) 0 % (0-3) Neutrophils # (Auto) 9.7 x10^3uL (1.8-7.7) 6.9 x10^3uL (1.8-7.7) Lymphocytes # (Auto) 1.5 x10^3/uL (1.0-4.8) 0.7 x10^3/uL (1.0-4.8) Monocytes # (Auto) 0.9 x10^3/uL (0.0-1.1) 0.2 x10^3/uL (0.0-1.1) Eosinophils # (Auto) 0.1 x10^3/uL (0.0-0.7) 0.0 x10^3/uL (0.0-0.7) Basophils # (Auto) 0.0 x10^3/uL (0.0-0.2) 0.0 x10^3/uL (0.0-0.2) Sodium Level 140 mmol/L (136-145) 137 mmol/L (136-145) Potassium Level 3.7 mmol/L (3.5-5.1) 4.2 mmol/L (3.5-5.1) Chloride Level 101 mmol/L (98-107) 102 mmol/L (98-107) Carbon Dioxide Level 28 mmol/L (21-32) 26 mmol/L (21-32) Anion Gap 11 (6-14) 9 (6-14) Blood Urea Nitrogen 15 mg/dL (8-26) 13 mg/dL (8-26) Creatinine 1.0 mg/dL (0.7-1.3) 1.0 mg/dL (0.7-1.3) Estimated GFR (Cockcroft-Gault) 91.8 91.8 BUN/Creatinine Ratio 15 (6-20) Glucose Level 100 mg/dL (70-99) 202 mg/dL (70-99) Calcium Level 8.9 mg/dL (8.5-10.1) 8.4 mg/dL (8.5-10.1) Total Bilirubin 0.8 mg/dL (0.2-1.0) Aspartate Amino Transf (AST/SGOT) 15 U/L (15-37) Alanine Aminotransferase (ALT/SGPT) 24 U/L (16-63) Alkaline Phosphatase 99 U/L (46-116) Total Protein 8.0 g/dL (6.4-8.2) Albumin 4.3 g/dL (3.4-5.0) Albumin/Globulin Ratio 1.2 (1.0-1.7) Lipase 121 U/L (73-393) Ethyl Alcohol Level < 10 mg/dL (0-10) Urine Collection Type Unknown Urine Color Yellow Urine Clarity Clear Urine pH 6.5 Urine Specific [place] >=1.030 Urine Protein Negative mg/dL (NEG-TRACE) Urine Glucose (UA) Negative mg/dL (NEG) Urine Ketones (Stick) Trace mg/dL (NEG) Urine Blood Negative (NEG) Urine Nitrite Negative (NEG) Urine Bilirubin Negative (NEG) Urine Urobilinogen Dipstick 1.0 mg/dL (0.2 mg/dL) Urine Leukocyte Esterase Negative (NEG) Urine RBC 1-2 /HPF (0-2) Urine WBC 1-4 /HPF (0-4) Urine Squamous Epithelial Cells Occ /LPF Urine Bacteria Few /HPF (0-FEW) Urine Opiates Screen Neg (NEG) Urine Methadone Screen Neg (NEG) Urine Barbiturates Neg (NEG) Urine Phencyclidine Screen Neg (NEG) Urine Amphetamine/Methamphetamine Neg (NEG) Urine Benzodiazepines Screen Neg (NEG) Urine Cocaine Screen Neg (NEG) Urine Cannabinoids Screen Neg (NEG) Urine Ethyl Alcohol Neg (NEG) Problem List Problems Medical Problems: (1) Acute appendicitis Status: Acute Assessment/Plan s/p appy [facility] ALMITA PAULINO MD 01/21/19 0856: SURGICAL PROGRESS NOTE Assessment/Plan agree with above JULISSA MENDIOLA APRN Jan 21, 2019 08:32 ALMITA PAULINO MD Jan 21, 2019 08:56
[2019-01-21] MEDS ORDERED: ENOXAPARIN 40 MG/0.4 ML SYRINGE. SQ SCH (09:00)
--- NOTE | 2019-01-21 09:27 | NUR ---
Pt ambulating and ready for dc. Does not want lovenox inj, non-administered in eMAR.
--- NOTE | 2019-01-21 10:20 | NUR ---
Discharge instructions and rx given to pt. This nurse answered pt's questions and concerns. Pt dc home accompanied by girlfriend.
[2019-01-21 10:26] LABS: % ATYL 1 % (0-0); % BANDS 13 % (0-9); % LYMPHS 7 % (24-48); % MONOS 2 % (0-10); % SEGS 77 % (35-66); PLT ESTIMATE ADEQUATE (ADEQUATE)
--- NOTE | 2019-01-22 17:08 | PATHOLOGY ---
[facility] Accession Number: [id number] . 01 Material submitted: . APPENDIX . 01 Clinical history: . Appendicitis . 02 Diagnosis: Appendix, appendectomy: - Acute appendicitis, with serosal exudate. ([facility] 01/22/2019) P/01/22/2019 . 02 Comment: There is no evidence of rupture. ([facility] 01/22/2019) . 02 Electronically signed: . Mario Hobson MD, Pathologist NPI- [id number] . 01 Gross description: . The specimen is received in formalin, labeled "Davina, Vishnu, appendix" and consists of an appendix measuring 3.5 cm in length and ranging from 0.6-1.0 cm in diameter with mesoappendix measuring up to 2.0 cm. The margin is closed with a line of paul and inked black. The serosa is [place] with adhesions. Sectioning reveals a dilated lumen containing brown fecal material and no fecaliths. [employer] sections are submitted in A1. ([facility]; 01/21/2019) SYU/SYU . 02 Pathologist provided ICD-10: K35.80 . 02 CPT . 441086 Specimen Comment: A courtesy copy of this report has been sent to Specimen Comment: [phone], . Specimen Comment: Report sent to / DR ROTHMAN Performed at: 01 [facility] [address], [place] [id number] MD Raffaele Aguiar MD Phone: [phone] Performed at: 02 [facility] [address], [place] [id number] MD Mario Hobson MD Phone: [phone]
== END 2019-01-21 10:20 | disposition home or self-care (01) | DRG 343 ==
LOC: ER 14:22 → 4 NORTH 16:46
PROVIDERS: ADMIT Surgery; ATTEND Surgery
PROC: 0DTJ4ZZ Resection of Appendix, Percutaneous Endoscopic Approach (ICD-10-PCS; principal; 2019-01-20 18:00)
DX: K35.80 Unspecified acute appendicitis (principal); F17.210 Nicotine dependence, cigarettes, uncomplicated
CPT/HCPCS: 36415; 74177; 80048; 80053; 80307; 81001; 83690; 85007; 85025; 88304; 96361; 96365; 96375; A7015; G0480; J0330; J0780; J1100; J2001; J2250; J2270; J2405; J2543; J2704; J2710; J3010; J3490; J7030; J7120; Q9967; 99285-25